=== PATIENT | female | born 1965 | race Caucasian/White ===

== ENCOUNTER 2023-05-21 06:57 | Day surgery (SDC) | payer OTHER ==
[~2023-05-21] VITALS: Ht 157.5 cm; Wt 52.2 kg
[2023-05-21 07:22] LABS: HCG,QUAL RESULT NEGATIVE (NEGATIVE)
[2023-05-21 11:55] VITALS: O2SAT 98
[2023-05-21] MEDS ORDERED: KETOROLAC TROMETHAMINE 30 MG VIAL IVP PRN (12:15)
[2023-05-21] MEDS ORDERED: METOCLOPRAMIDE HCL 10 MG/2 ML VIAL IVP PRN (12:15)
[2023-05-21] MEDS ORDERED: ACETAMINOPHEN 325 MG TABLET PO ONE (12:15)
[2023-05-21] MEDS ORDERED: HYDROmorphone 1 MG/ML INJ. CARTRIDGE IVP PRN (12:15)
[2023-05-21] MEDS ORDERED: ONDANSETRON HCL 4 MG/2 ML VIAL IVP PRN (12:15)
[2023-05-21 14:38] VITALS: BP_SYST 128; PULSE 63; RESP 16
== END 2023-05-21 14:40 | disposition home or self-care (01) ==
LOC: SDS 06:57 → SMU 06:57 → SDS 14:40
PROVIDERS: ATTEND Obstetrics & Gynecology
DX: N95.0 Postmenopausal bleeding (principal); Z88.0 Allergy status to penicillin
CPT/HCPCS: 84703; 87081; 88305